=== PATIENT | female | born 1975 | race Caucasian/White ===

== ENCOUNTER 2020-06-08 10:48 | Outpatient (CLI) | payer OTHER ==
--- NOTE | 2020-06-09 09:38 | Mammography Report ---
BILATERAL DIGITAL SCREENING MAMMOGRAM 3D/2D: 06/08/2020 CLINICAL: Routine screening. Comparison is made to exams dated: 05/18/2018 mammogram, 04/11/2016 mammogram, 02/27/2016 mammogram, and 01/31/2015 mammogram - [facility]. The tissue of both breasts is heterogeneously dense. Th is may lower the sensitivity of mammography. There are a stable benign focal asymmetry and calcification in the right breast. There also is a sta ble benign calcification in the left breast. No significant masses, calcifications, or other findings are seen in either breast. There has been no significant interval change. IMPRESSION: BENIGN There is no mammographic evidence of malignancy. A 1 year screening mammogram is recommended. This exam was interpreted at Station ID: [id number]. NOTE: For mammograms, a report in lay terms will be sent to the patient. Approximately 15% of breast malignancies will not be visualized mammographically. In the management of a palpable breast mass, a negative mammogram must not discourage biopsy of a clinically suspicious lesion. Electronically Signed By: Shade Hurtado acr/:06/08/2020 12:25:29 ACR BI-RADS Category 2: Benign Finding(s) 3342F PARENCHYMAL PATTERN: (D) - The breast(s) demonstrate(s) heterogeneously dense fibroglandular rupal langford. BI-RADS CATEGORY: (2) - 2 RECOMMENDATION: (ANNUAL) - Recommend routine annual screening mammography. [id number] 1 year screening LATERALITY: (B)
== END 2020-06-08 10:49 | disposition home or self-care (01) ==
LOC: DI.N 10:48
DX: Z12.31 Encounter for screening mammogram for malignant neoplasm of breast (principal)